=== PATIENT | male | born 1995 | race Caucasian/White ===

== ENCOUNTER 2016-10-21 12:52 | Emergency (ER) | payer OTHER ==
[2016-10-21 12:56] VITALS: RESP 18
[2016-10-21] MEDS ORDERED: TDAP ADULT 0.5 ML INJ (BOOSTRIX) IM ONE (13:09)
--- NOTE | 2016-10-21 13:48 | EDPHY ---
H & P Time Seen by Provider: 10/21/16 13:19 HPI/ROS: CHIEF COMPLAINT: Left middle finger injury HISTORY OF PRESENT ILLNESS: 21-year-old male presents to the emergency department by private vehicle with her to his left finger. The patient better or and actually cut the lateral aspect of his left 3rd finger PIP joint. He was to control the bleeding with firm direct pressure. He believes testing. Denies any other trauma or injury. He is right dominant. ROS: Denies numbness or tingling in his fingers, retained foreign body. Past Medical/Surgical History: Negative Social History: Single Smoking Status: Never smoked Physical Exam: On examination the patient has a very superficial flap laceration to the lateral aspect of the left 3rd finger at PIP joint. Normal sensation to light touch with normal 2 point discrimination. No palpable bony tenderness. Full range of motion of his fingers. The other fingers do not appear injured. Constitutional: Initial Vital Signs Temperature (C) 36.5 C 10/21/16 12:53 Heart Rate 99 10/21/16 12:53 Respiratory Rate 18 10/21/16 12:53 Blood Pressure 148/77 H 10/21/16 12:53 O2 Sat (%) 97 10/21/16 12:53 O2 Delivery Mode Room Air Allergies/Adverse Reactions: No Known Allergies Allergy (Unverified 10/21/16 12:55) MDM/Departure - MDM Procedures: The flap associated with laceration was very superficial was trimmed and surgical foam and tube gauze was placed. No sutures were placed. Medications Given: Discontinued Medications Diphtheria/Tetanus/Acell Pertussis (Boostrix) 0.5 ml IM .ONCE ONE Stop: 10/21/16 13:10 Last Admin: 10/21/16 13:12 Dose: 0.5 ml ED Course/Re-evaluation: 21-year-old male presents with very superficial flap laceration. The flap was trimmed and surgical foam dressing was applied. He was given wound care precautions. - Depart Disposition: Home, Routine, Self-Care Clinical Impression: Skin avulsion left index finger Condition: Good Instructions: Skin Avulsion (ED), Acute Wounds (ED) Additional Instructions: Keep wound dry, clean and protected. Return if you notice any signs or symptoms of infection such as redness, swelling, increased pain, fever, purulent drainage. Your given a tetanus shot today in the emergency department , please document this for your records. Ibuprofen 600 mg every 8 hours as needed for pain. Referrals: Work Comp Ref/Restrictions [Outside] - As per Instructions
[2016-10-21 14:04] VITALS: BP 136/75; PULSE 81; TEMP 98.2; O2SAT 95
== END 2016-10-21 14:06 | disposition home or self-care (01) ==
DX: S61.201A Unspecified open wound of left index finger without damage to nail, initial encounter (principal); Z23 Encounter for immunization; W26.0XXA Contact with knife, initial encounter